=== PATIENT | female | born 1965 | race Caucasian/White ===

== ENCOUNTER → 2017-08-06 | Outpatient (CLI) | payer BC ==
--- NOTE | 2017-08-06 15:18 | US ---
HISTORY: Enlarged lymph nodes bilateral neck Study: Ultrasound of the soft tissues of the neck Comparison: None Technique: Multiple sonographic images of the soft tissues of the neck were obtained bilaterally. Findings: Sonographic images of the soft tissues of the neck demonstrate bilateral mixed echogenic structures l ikely representing lymph nodes. The largest lymph node within the soft tissues of the right neck juan carlos ures approximately 0.8 cm. The largest lymph node within the soft tissues of the left neck is mildly enlarged measuring 1.1 cm. IMPRESSION: Bilateral lymph nodes within the soft tissues of the neck as discussed above. Reported By:
--- NOTE | 2017-08-06 15:19 | US ---
HISTORY: Enlarged left axillary lymph nodes Study: Axillary ultrasound Comparison: None Technique: Multiple sonographic images of the left axillary region were obtained. Findings: Sonographic images of the region of interest demonstrate multiple mixed echogenic structures which ap pear to represent lymph nodes. Some of these lymph nodes are enlarged. The largest visualized lymph n ode measures approximately 2.5 cm in size. IMPRESSION: Enlarged left axillary lymph nodes as noted above. Reported By:
== END | disposition home or self-care (01) | DRG 607 ==
LOC: RAD 10:33
PROVIDERS: ATTEND Internal Medicine
DX: D17.1 Benign lipomatous neoplasm of skin and subcutaneous tissue of trunk (principal); R59.1 Generalized enlarged lymph nodes; R59.0 Localized enlarged lymph nodes
CPT/HCPCS: 76536; 76882

== ENCOUNTER → 2017-08-21 | Outpatient (CLI) | payer BC ==
[~2017-08-21] MED LIST: NS 100 ML IV 0 ML IV ONE
[2017-08-21 10:35] LABS: CREATININE 0.68 mg/dL (0.55-1.02)
== END ==
LOC: RAD 09:57
PROVIDERS: ATTEND Internal Medicine
DX: R10.84 Generalized abdominal pain (principal); R06.09 Other forms of dyspnea
CPT/HCPCS: 36415; 71270; 74178; 82565; 84520; A4222

== ENCOUNTER → 2017-08-27 | Outpatient (CLI) | payer BC ==
[~2017-08-27] MED LIST changes: -NS 100 ML IV 0 ML IV ONE; +NS 100 ML IV 100 ML IV ONE
--- NOTE | 2017-09-02 12:39 | CT ---
CT OF THE NECK, CHEST, ABDOMEN AND PELVIS WITHOUT AND WITH IV CONTRAST HISTORY: Abdominal pain, dyspnea, localized swelling mass and lump of the neck. Comparison: Ultrasound of the thyroid 08/06/2017 Technique: Multiple axial images of the neck, chest, abdomen, and pelvis were obtained from the thora cic inlet to the pubic symphysis both before and after after the administration of IV contrast. Dose reduction techniques including Automated Exposure Control (AEC) and adjustment of mA and kV were utli zed. Findings: CT neck with and without: The aerodigestive structures are within normal limits. Specifically, the nasal cavity, nasopharynx, oral cavity, oropharynx, hypopharynx, larynx, and visualized trachea and esophagus demonstrate no mas ses or abnormal enhancement. No pathologically enlarged, necrotic, or otherwise abnormal lymph nodes. Cervical lymph nodes are normal. The parotid and submandibular glands appear within normal limits. The thyroid gland is normal in size without focal abnormality. Evaluation of the visualized portions of brain parenchyma and orbits demonstrates no abnormality. The visualized paranasal sinuses are pred ominantly clear. The tympanomastoid cavities are unopacified. There is normal intravascular enhanceme nt. severe multilevel degenerative disc disease of the cervical spine. Following administration of i ntravenous contrast material, there is no abnormal enhancement. CT chest without contrast: The heart is normal in size. No pericardial effusion No focal consolidations, pleural effusions or pneumothorax. Airways are patent. No suspicious pulmon leonila nodules or masses. CT chest with contrast: No suspicious mediastinal or axillary lymph nodes. Although not optimized to detect pulmonary embolism, no large central pulmonary emboli are seen. CT abdomen and pelvis without contrast : No calcified gallstones or renal stones. No distal ureteral stones or bladder stones. CT abdomen and pelvis with contrast : Liver and spleen are normal in size and contour. Hepatic steato sis without focal lesion. The portal vein is patent. Pancreatic duct is prominent although this is li tracy secondary to changes of chronic pancreatitis. Gallbladder is present. No calcified gallstones or gallbladder wall thickening. The pancreas is unremarkable. Adrenal glands are normal. Kidneys enhanc e symmetrically without hydronephrosis or nephrolithiasis. No bowel obstruction or inflammation. Normal appendix.. No abnormal appearing mesenteric or retroperi toneal lymph nodes. No free fluid or fluid collections. The bladder is normal in appearance. Uterus and ovaries grossly unremarkable. No free fluid or abnorm al pelvic lymph nodes. No aggressive osseous lesions. IMPRESSION: 1. Hepatic steatosis. It should be noted that dual phase CT (with and without contrast) is neither recommended nor required in most situations and should be reserved for patients with known, specific solid organ lesions, hem aturia, aortic pathology and few other select indications. https://acsearch.acr.org/list Reported By:
== END | disposition home or self-care (01) | DRG 391 ==
LOC: RAD 11:13
PROVIDERS: ATTEND Internal Medicine
DX: R10.84 Generalized abdominal pain (principal); R06.09 Other forms of dyspnea; R22.1 Localized swelling, mass and lump, neck; K83.1 Obstruction of bile duct
CPT/HCPCS: 70492; 71270; 74178; A4222

== ENCOUNTER 2017-11-29 13:54 | Emergency (ER) | payer BC ==
[2017-11-29 14:09] VITALS: BP 148/70; BMI 24.3
--- NOTE | 2017-11-29 19:12 | DR.GENAD ---
HPI - PCP Primary Care Physician: Ramona - Complaint/Symptoms Chief Complaint Doctors Comments: patient states she is unable to walk since this am. She was hurting in her left leg but it got worst and she cannot put any weight on her left leg. States she noticed a large nodule on the left hip today and has has nodule on the left shoulder that has gotten larger and is painful. states she has nodules under her left arm for a while. States she has had x-rays and ultrasound a few months ago but has not seen a surgeon. States she is from [place] and is not fown of the surgeons in that area. She denies any recent trauma. She denies hematuria, fever, chills, cold or cough. states she has had Gerardo virus before but do not know how high her titer was. She denies any recent trauma. She denies fever, chills night sweats or weight loss. states the pain is severe today and she is unable to walk. Chief Complaint:: left hip pain and knot of left shoulder - Nurses notes reviewed Nurses Notes Review: Yes - Source History Provided: Patient - Mode of Arrival Mode of Arrival: Wheelchair - Timing Onset of Chief Complaint: 11/25/17 Came on: Gradually - Duration Duration: Constant How lon Duration: Days - Location Location: left hip and leg pain - Severity Severity: Moderate - Modifying Factors Worsens:: walking and movement Improves:: nothing PMH - PMH Past Medical History: Yes Past Medical History: Diabetes, Hypertension Past Medical History Comment: ari rodriguez Past Surgical History: No - Family History History of Family Medical Conditions: Yes Family Medical History: Hypertension Family Medical History Comment: ALS - Social History Does patient currently use any type of tobacco product: Yes Have you used tobacco products in the last 12 months: Yes Type of Tobacco Use: Cigarettes Alcohol Use: None Do you use any recreational Drugs:: No Lives With: Alone Lives Where: Home - infectious screening In the last 2 months have you had wt loss of >10#?: NO Have you had fever, night sweats or hemotysis?: No Have you traveled outside the country in the last 6 months?: No Isolation: Standard ROS - Review of Systems Constitutional: No Symptoms Reported, Weakness. negative: See HPI, Chills, Diaphoresis, Fever, Malaise, Irritable, Fatigue, Loss of Appetite, Other Eyes: No Symptoms Reported. negative: See HPI, Eye Pain, Blurred Vision, Tearing, Discharge, Photophobia, Diplopia, Other ENTM: No Symptoms Reported Respiratoy: No Symptoms Reported. negative: See HPI, Productive Cough, Non- Productive Cough, Moist Cough, Dry Cough, Hacking Cough, Barking Cough, Brassy Cough, Orthopnea, Short of Breath, Stridor, Wheezing, Hemoptysis, Other Cardiovascular: No Symptoms Reported Gastrointestinal/Abdominal: No Symptoms Reported. negative: See HPI, Abdominal Pain, Constipation, Diarrhea, Nausea, Vomiting, Food Intolerance, Other Genitourinary: No Symptoms Reported Neurological: No Symptoms Reported, Problems Walking (left hip pain) Musculoskeletal: No Symptoms Reported, Left, Hip Integumentary: No Symptoms Reported. negative: See HPI, Change in Color, Change in Hair/Nails, Dryness, Lesions, Lumps, Rash, Itching, Wound, Bruises, Juandice, Other Hematologic/Lymphatic: No Symptoms Reported Endocrine: No Symptoms Reported Psychiatric: No Symptoms Reported PE - Vital Signs Vitals: Temperature 99.5 F Pulse Rate 100 Respiratory Rate 18 Blood Pressure 148/70 O2 Sat by Pulse Oximetry 98 - General Limitations: No Limitations General Appearance: Alert, In Distress (moderate) - Head Head Exam: Normal Inspection, Atraumatic, Normocephalic - Eyes Eye exam: Normal Appearance, PERRL, EOMI. negative: Scleral Icterus, Conjunctival Injection, Nystagmus, Miosis, Mydrasis, Periorbital Swelling, Periorbital Tenderness, Other - ENT ENT Exam: Normal Exam, Normal Oropharynx, Normal External Ear Exam, Mucous Membranes Moist, TM's Normal Bilaterally External Ear Exam: Normal External Inspection TM/Canal Exam: Bilateral Normal Nose Exam: Normal Nose Exam Mouth Exam: Normal Inspection. negative: Drooling, Trismus, Lip Swelling, Tongue Elevation, Tongue Swelling, Laceration, Other Throat Exam: Normal Inspection. negative: Tonsillar Erythema, Tonsillomegaly, Tonsillar Exudate, R Peritonsillar Mass, L Peritonsillar Mass, Muffled Voice, Other - Neck Neck Exam: Normal Inspection, Full ROM, Trachea Midline, Lymphadenopathy (left submandibular nodes) - Chest Chest Inspection: Normal Inspection, Symmetric Chest Wall Rise - Respiratory Respiratory Exam: Normal Lung Sounds Bilat Respiratory Exam: Bilateral Clear to Auscultation - Cardiovascular Cardiovascular Exam: Regular Rate, Normal Rhythm, Normal Heart Sounds - Abdominal Exam Abdominal Exam: Normal Inspection, Normal Bowel Sounds, Soft, Dimnished Bowel Sounds Abdominal Tenderness: negative: RUQ, RLQ, LUQ, LLQ, Epigastrium, Suprapubic, Diffuse, Mild, Moderate, Severe, Other - Back Back Exam: Normal Inspection, Full ROM. negative: Tenderness, (R) CVA Tenderness, (L) CVA Tenderness, Muscle Spasm, Paraspinal Tenderness, Vertebral Tenderness, Rashes, (R) Sciatic Notch Tenderness, (L) Sciatic Notch Tendern, (R ) Straight Leg Raise, (L) Straight Leg Raise, Other - Neurologic Neurological Exam: Alert, Oriented X3, CN II-XII Intact, Reflexes Normal. negative: Normal Gait (gait not tested), Motor Sensory Deficit - Psychiatric Psychiatric Exam: Normal Affect, Normal Mood, Anxious - Skin Skin Exam: Warm, Dry, Intact, Normal Color Course - Reevaluation 1st: Improved - Education/Counseling Education/Counseling: Patient, Family Educated On: Treatment, Diagnosis, Needs for Follow Up ROR - Labs Reviewed Laboratory Results Reviewed?: Yes (All labs and x-ray results reviewed and discussed with patient) Result Diagrams: 11/29/17 19:00 11/29/17 19:00 Laboratory: WBC 10.0 X10^3/uL (3.6-10.0) 11/29/17 19:00 RBC 4.67 X10^6/uL (3.5-5.4) 11/29/17 19:00 Hgb 15.0 g/dL (12.0-16.0) 11/29/17 19:00 Hct 44.2 % (36.0-47.0) 11/29/17 19:00 MCV 94.8 fL (80.0-100.0) 11/29/17 19:00 MCH 32.0 pg (27.0-34.0) 11/29/17 19:00 MCHC 33.8 g/dL (33.0-35.0) 11/29/17 19:00 RDW 14.3 % (11.6-16.5) 11/29/17 19:00 Plt Count 193 X10^3/uL (150.0-450.0) 11/29/17 19:00 MPV 9.5 fL (7.4-11.0) 11/29/17 19:00 Neut % 55.6 % (42.0-75.0) 11/29/17 19:00 Lymph % 32.9 % (21.0-51.0) 11/29/17 19:00 Henderson % 5.9 % (0.0-13.0) 11/29/17 19:00 Eos % 4.9 % (0.9-2.9) H 11/29/17 19:00 Baso % 0.7 % (0.2-1.0) 11/29/17 19:00 Neut # 5.6 x10^3/uL (2.2-4.8) H 11/29/17 19:00 Lymph # 3.3 X10^3/uL (1.3-2.9) H 11/29/17 19:00 Henderson # 0.6 x10^3/uL (0.3-0.8) 11/29/17 19:00 Eos # 0.5 x10^3/uL (0.0-0.2) H 11/29/17 19:00 Baso # 0.1 X10^3/uL (0.0-0.1) 11/29/17 19:00 Absolute Nucleated RBC 0.1 /100WBC 11/29/17 19:00 Sodium 141 mmol/L (136-145) 11/29/17 19:00 Corrected Sodium TNP 11/29/17 19:00 Potassium 3.8 mmol/L (3.5-5.1) 11/29/17 19:00 Chloride 102 mmol/L (98-107) 11/29/17 19:00 Carbon Dioxide 27.3 mmol/L (21-32) 11/29/17 19:00 BUN 13 mg/dL (7-18) 11/29/17 19:00 Creatinine 0.67 mg/dL (0.55-1.02) 11/29/17 19:00 Est GFR (MDRD) Af Amer > 60 (>60) 11/29/17 19:00 Est GFR (MDRD) Non-Af > 60 (>60) 11/29/17 19:00 Glucose 68 mg/dL (65-99) 11/29/17 19:00 Calcium 8.9 mg/dL (8.5-10.1) 11/29/17 19:00 Corrected Calcium TNP 11/29/17 19:00 Total Bilirubin 0.20 mg/dL (0.2-1.0) 11/29/17 19:00 AST 18 Units/L (15-37) 11/29/17 19:00 ALT 23 Units/L (12-78) 11/29/17 19:00 Alkaline Phosphatase 75 Units/L (46-116) 11/29/17 19:00 Creatine Kinase 37 Units/L (26-192) 11/29/17 19:00 C-Reactive Protein 1.70 mg/L (0-3.0) 11/29/17 19:00 Total Protein 7.1 g/dL (6.4-8.2) 11/29/17 19:00 Albumin 3.9 g/dL (3.4-5.0) 11/29/17 19:00 Globulin 3.2 g/dL (2.5-4.5) 11/29/17 19:00 Albumin/Globulin Ratio 1.2 Ratio (1.1-2.1) 11/29/17 19:00 Monoscreen Negative (NEGATIVE) 11/29/17 19:00 - Other Results Comments: CT abdomena nd pelvis: Normal liver and spleen. Hepatic steatosis. CT chest: Normal heart size. no pericardial effusion. no suspicius pulmonary nodules or masses. - XRAY XRAY Interpreted by: Radiologist (CT lumbar spine:Degenerative changes lumbar spine and buldging disc L3-4 and l-5-S1) XRAY Findings: CT neck: Sever multilevel degenerativedisc disease c-spine. - Diagnosis Discharge Problem: Lymphadenopathy, left hip nodule, Degenerative disc disease at L5-S1 level, Degenerative cervical disc, Spinal stenosis, Bulging lumbar disc - Discharge Plan Disposition: HOME, SELF-CARE Condition: Stable Prescriptions: Ketorolac Tromethamine [Toradol Tab] 10 mg PO Q8H PRN #12 tab PRN Reason: Pain - Follow ups/Referrals Follow ups/Referrals: Karla ZHANG [Primary Care Provider] - 3 days - Instructions Instructions: Degenerative Disk Disease, Lymphadenopathy, Spinal Stenosis
[2017-11-29 19:25] LABS: BASOPHILS # (AUTO) 0.1 X10^3/uL (0.0-0.1); BASOPHILS % (AUTO) 0.7 % (0.2-1.0); EOSINOPHILS # (AUTO) 0.5 x10^3/uL (0.0-0.2); EOSINOPHILS % (AUTO) 4.9 % (0.9-2.9); HEMATOCRIT 44.2 % (36.0-47.0); LYMPHOCYTES # (AUTO) 3.3 X10^3/uL (1.3-2.9); LYMPHOCYTES % (AUTO) 32.9 % (21.0-51.0); MEAN CORPUSCULAR HGB CONC 33.8 g/dL (33.0-35.0); MEAN CORPUSCULAR VOLUME 94.8 fL (80.0-100.0); MEAN PLATELET VOLUME 9.5 fL (7.4-11.0); MONOCYTES # (AUTO) 0.6 x10^3/uL (0.3-0.8); MONOCYTES % (AUTO) 5.9 % (0.0-13.0); NEUTROPHILS # (AUTO) 5.6 x10^3/uL (2.2-4.8); NEUTROPHILS % (AUTO) 55.6 % (42.0-75.0); PLATELET COUNT 193 X10^3/uL (150.0-450.0); RED BLOOD COUNT 4.67 X10^6/uL (3.5-5.4); RED CELL DISTRIBUTION WIDTH 14.3 % (11.6-16.5)
[2017-11-29] MEDS ORDERED: TORADOL 60 MG VIAL IM ONE (19:26)
[2017-11-29] MEDS ORDERED: TORADOL 60 MG VIAL ONE (19:32)
[2017-11-29 19:38] LABS: ALANINE AMINOTRANSFERASE 23 Units/L (12-78); ALBUMIN 3.9 g/dL (3.4-5.0); ALKALINE PHOSPHATASE 75 Units/L (46-116); ASPARTATE AMINO TRANSFERASE 18 Units/L (15-37); BLOOD UREA NITROGEN 13 mg/dL (7-18); CALCIUM 8.9 mg/dL (8.5-10.1); CARBON DIOXIDE 27.3 mmol/L (21-32); CHLORIDE 102 mmol/L (98-107); CREATININE 0.67 mg/dL (0.55-1.02); SODIUM 141 mmol/L (136-145); TOTAL PROTEIN 7.1 g/dL (6.4-8.2); eGFR BLACK RACES > 60 (>60); eGFR NON BLACK RACES > 60 (>60)
--- NOTE | 2017-11-29 20:21 | CT ---
CT lumbar spine without contrast Indication: Left hip pain Technique: Helical CT images of the lumbar spine were obtained without IV contrast. Reformatted image s in the coronal and sagittal planes were also generated for review. Comparison: None Findings: L4 and L5 limbus vertebrae are noted. Vertebral body heights and alignment are otherwise no rmal. No acute fracture or subluxation is identified. There is mild multilevel degenerative disc dise ase and moderate facet arthropathy throughout the lumbar spine, most significant from L3-L4 to L5-S1. There are also mildly prominent broad-based posterior disc bulges at these levels, which in combinat ion with facet arthropathy result in at least mild canal and bilateral foraminal stenosis. There is a lso mild DJD of the bilateral SI joints. Mild vascular calcifications are noted. The remaining unenhanced paraspinal soft tissues are grossly unremarkable. Impression: Degenerative changes of the lumbar spine, as detailed above. MRI should be considered for further benny luation, if clinically warranted. Reported By:
--- NOTE | 2017-11-29 20:45 | CT ---
CT left femur without contrast Indication: Left hip pain Technique: Helical CT images of the left femur were obtained without IV contrast. Reformatted images in the coronal and sagittal planes were also generated for review. Comparison: None Findings: The left femur is normal. No acute fracture, malalignment or destructive osseous lesion is identified. The left hip joint appears well maintained without significant arthropathy. No CT evidenc e of osteonecrosis of the left femoral head is identified. There is moderate tricompartmental degener ative arthrosis of the left knee with a trace associated joint effusion. The unenhanced myotendinous structures of the imaged left lower extremity are unremarkable. The image d contents of the lower left pelvis are also grossly within normal limits. Impression: Moderate degenerative changes of the knee. Otherwise, unremarkable noncontrast CT examination of the left femur. Reported By:
--- NOTE | 2017-11-29 21:28 | RAD ---
Left shoulder, three views Indication: Left hip pain and knot of left shoulder Comparison: None Findings: No acute fracture or malalignment is identified. There is moderate AC and mild glenohumeral joint DJD. The acromiohumeral interval is mildly narrowed, suggestive for rotator cuff insufficiency . Surrounding soft tissues are unremarkable. Impression: Degenerative and chronic findings, as above without acute fracture or dislocation. Reported By:
[2017-11-29 21:51] LABS: RHEUMATOID FACTOR NEGATIVE (NEGATIVE)
== END 2017-11-29 21:36 | disposition home or self-care (01) ==
LOC: ER 14:13
DX: M51.36 Other intervertebral disc degeneration, lumbar region (principal); M50.30 Other cervical disc degeneration, unspecified cervical region; M48.061 Spinal stenosis, lumbar region without neurogenic claudication; M51.06 Intervertebral disc disorders with myelopathy, lumbar region; R59.1 Generalized enlarged lymph nodes; M00-M99 Diseases of the musculoskeletal system and connective tissue
CPT/HCPCS: 36415; 72131; 73030; 73700; 80053; 82550; 85025; 86140; 86308; 86430; 96372; 99283; J1885

== ENCOUNTER → 2018-02-26 | Outpatient (CLI) | payer BC ==
--- NOTE | 2018-02-26 08:13 | US ---
HISTORY: Palpable mass in the left axilla extending to back of shoulder. Study: Left axillary ultrasound: Multiplanar ultrasonographic examination of the left axilla was pe rformed. Comparison: None Findings: On the images submitted to ma no discrete solid or cystic mass is identified. There is a small benig n-appearing lymph node present measuring approximately 10 mm x 5 mm x 6 mm. This has a hypo echoic c ortex and a hyperechoic center with internal vascular flow. IMPRESSION: 1. Small lymph node in the left axilla as described above. 2. No other abnormalities are identified. 3. If this does not correspond to the palpable mass then CT scan may be of assistance. Reported By:
== END ==
LOC: RAD 07:13
PROVIDERS: ATTEND Internal Medicine
DX: R59.0 Localized enlarged lymph nodes (principal)
CPT/HCPCS: 76882